=== PATIENT | female | born 1945 | race Caucasian/White ===

== ENCOUNTER → 2017-06-26 | Outpatient (CLI) | payer MEDICARE, BC ==
--- NOTE | 2017-06-26 14:56 | US ---
EXAMINATION TYPE: US duplex aorta DATE OF EXAM: 06/26/2017 COMPARISON: NONE CLINICAL HISTORY: R10.31 Right lower quadrant pain. Palpable pulse felt by physician EXAM MEASUREMENTS: Abdominal Aorta: Proximal: 2.0 x 2.2cm Mid: 1.8 x 1.9cm Distal: 1.5 x 1.6cm Bifurcation: 1.1 1.1 IMPRESSION: NO EVIDENCE OF AORTIC ANEURYSM AT THIS TIME.
--- NOTE | 2017-06-26 14:58 | US ---
EXAMINATION TYPE: US pelvis complete transvag DATE OF EXAM: 06/26/2017 COMPARISON: NONE CLINICAL HISTORY: R10.31 Right lower quadrant pain. Right adnexal fullness upon examination TECHNIQUE: TA and TV Date of LMP: 15+yrs ago EXAM MEASUREMENTS: Uterus: 4.5 x 2.6 x 2.2 cm Endometrial Stripe: 0.5 cm Right Ovary: not seen Left Ovary: not seen 1. Uterus: Anteverted atrophic in size and wnl 2. Endometrium: wnl 3. Right Ovary: unable to visualize due to atrophy and bowel gas 4. Left Ovary: unable to visualize due to atrophy and bowel gas 5. Bilateral Adnexa: wnl 6. Posterior cul-de-sac: wnl IMPRESSION: NORMAL POSTMENOPAUSAL PELVIS.
== END | disposition home or self-care (01) ==
LOC: RADUSWWP 12:52
PROVIDERS: ATTEND Emergency Medicine
DX: R10.31 Right lower quadrant pain (principal); Z78.0 Asymptomatic menopausal state
CPT/HCPCS: 76830; 76856; 93979